=== PATIENT | male | born 1965 | race Caucasian/White ===

== ENCOUNTER 2016-11-21 15:17 | Emergency (ER) | payer SELFPAY ==
--- NOTE | 2016-11-21 15:38 | NUR ---
CALLED FROM [facility] AT THIS TIME NO ANSWER PATIENT IS LWBS.
== END 2016-11-21 15:38 | disposition left against medical advice (07) ==
LOC: MED 15:17
DX: R53.1 Weakness (principal); Z53.21 Procedure and treatment not carried out due to patient leaving prior to being seen by health care provider